=== PATIENT | female | born 1935 | race Caucasian/White ===

== ENCOUNTER 2017-06-14 08:44 | Outpatient (CLI) | payer MEDICARE ==
[~2017-06-14] VITALS: Ht 170.2 cm; Wt 79.5 kg
[2017-06-14 10:05] LABS: BASOPHILS 1.1 % (0-2); EOSINOPHILS 2.3 % (0-7); HEMATOCRIT 39.8 % (36.0-48.0); HEMOGLOBIN 13.4 g/dL (12-16); IMMATURE GRANULOCYTES 0.2 % (0-5); LYMPHOCYTES 29.9 % (15-50); MCH 31.5 pg (26.0-34.0); MCHC 33.7 g/dL (31.0-37.0); MCV 93.4 fL (80.0-100.0); NEUTROPHILS 58.5 % (40-80); PLATELET COUNT 356 10x3/uL (130-400); RBC 4.26 10x6/uL (4.00-5.40); RDW 13.1 % (11.5-14.5); WBC 9.5 10x3/uL (4.8-10.8)
[2017-06-14] MEDS ORDERED: SYNTHROID100 MCG PO (10:07)
[2017-06-14] MEDS ORDERED: BAYER CHEWABLE81 MG PO (10:07)
[2017-06-14] MEDS ORDERED: PRAVACHOL20 MG PO (10:07)
[2017-06-14 10:14] VITALS: BP 154/68; Ht 170.2 cm; Wt 79.5 kg
[2017-06-14 10:18] LABS: INR 0.89 (0.85-1.17); PROTIME 11.9 SECONDS (11.6-15.0)
[2017-06-14 10:21] LABS: ANION GAP 14.1 mmol/L (8-16); CALCIUM 9.4 mg/dL (8.5-10.1); CARBON DIOXIDE 26.2 mmol/L (21.0-32.0); CREATININE - SERUM 0.9 mg/dL (0.6-1.3); POTASSIUM - SERUM 4.3 mmol/L (3.5-5.1)
--- NOTE | 2017-06-14 16:19 | NUR ---
1445- PT BACK TO ROOM. ON BEDREST FOR THE NEXT 2 HOURS AND THEN HOME. 1500- SITTING UP, WITH HOB ELEVATED. LUNCH TRAY OFFERED AND TOLERATED. 1530- PT COMFORTABLE. DRESSING C/D/I TO RIGHT BACK HIP. WILL CONTINUE TO MONITOR. 1600- CONTINUES TO SIT UP WITH HOB ELEVATED. AT BEDSIDE. *SEE CHART FOR RECORDED VITAL SIGNS
--- NOTE | 2017-06-14 16:56 | NUR ---
1640- IV D/C'D, PT TOLERATED. CATHETER INTACT. 1645- DISCHARGE INSTRUCTIONS COMPLETED. PAPERWORK SIGNED. PT AND VERBALIZED UNDERSTANDING 1655- PT DISCHARGED VIA WHEELCHAIR WITH .
== END 2017-06-14 16:55 | disposition home or self-care (01) ==
LOC: D.OPS 08:44 → D.CT 11:00 → D.OPS 16:55
PROVIDERS: Radiology Diagnostic Radiology
DX: C18.4 Malignant neoplasm of transverse colon (principal); D72.829 Elevated white blood cell count, unspecified; E03.9 Hypothyroidism, unspecified; E78.5 Hyperlipidemia, unspecified; M19.90 Unspecified osteoarthritis, unspecified site; Z01.812 Encounter for preprocedural laboratory examination